=== PATIENT | male | born 1980 | race Caucasian/White ===

== ENCOUNTER 2017-10-01 12:31 | Emergency (ER) | payer OTHER ==
[2017-10-01] MEDS ORDERED: LORazepam 2 MG/ML INJ NASAL ONE (12:47)
--- NOTE | 2017-10-01 12:48 | EDPHY ---
H & P Time Seen by Provider: 10/01/17 12:44 HPI/ROS: CHIEF COMPLAINT: "I'm freaking out" HISTORY OF PRESENT ILLNESS: 37-year-old male arrives via private vehicle with a friend who provides the majority of history is the patient is hyperventilating and anxious and is having difficulty providing history when high initially interview him secondary to the acute hyperventilation symptoms. The patient describes a stressful couples therapy session last evening as patient going through a separation with his partner which triggered acute anxiety. No suicidal or homicidal ideation. PRIMARY CARE PROVIDER: REVIEW OF SYSTEMS: A ten point review of systems was performed and is negative with the exception of the items mentioned in the HPI PAST MEDICAL & SURGICAL HISTORY: No pertinent medical or surgical history SOCIAL HISTORY: Positive for polysubstance abuse PHYSICAL EXAM (Prior to examination, patient consented to physical exam, hands were washed and my usual and customary physical exam procedures followed) 1) GENERAL: Well-developed, well-nourished, anxious, hyperventilating 2) HEAD: Normocephalic, atraumatic 3) HEENT: Pupils equal, round, reactive to light bilaterally. Sclera anicteric. 4) NECK: Full range of motion, no meningeal signs. 5) LUNGS: Clear auscultation bilaterally, no wheezes, no rhonchi, no retractions. 6) HEART: Regular rate and rhythm, no murmur, no heave, no gallop. 7) ABDOMEN: No guarding, no rebound, no focal tenderness, negative McBurney's, negative Diaz's, negative Rovsing's, negative peritoneal sign, 8) MUSCULOSKELETAL: Carpal pedal spasms present. 9) BACK: No CVA tenderness, no midline vertebral tenderness, no fluctuance, no step-off, no obvious trauma, no visual or palpable abnormality. 10) SKIN: No rash, no petechiae. 11) Psychiatric: Patient is oriented X 3, there is no agitation. DIFFERENTIAL DIAGNOSIS: In no particular include but limited to acute anxiety reaction, pulmonary embolus, Constitutional: Initial Vital Signs Temperature (C) 36.9 C 10/01/17 12:44 Heart Rate 95 10/01/17 12:44 Respiratory Rate 24 H 10/01/17 12:44 Blood Pressure 171/103 H 10/01/17 12:44 O2 Sat (%) 99 10/01/17 12:44 O2 Delivery Mode Room Air Allergies/Adverse Reactions: No Known Allergies Allergy (Unverified 11/11/10 17:42) Home Medications: Medication Instructions Recorded Adderall 10 MG (*) 10/01/17 LORazepam [Ativan 1 mg (RX)] 1 mg PO Q6 PRN #4 tab 10/01/17 MDM/Departure - MDM Medications Given: Discontinued Medications Lorazepam (Ativan Injection) 1 mg NASAL EDNOW ONE Stop: 10/01/17 12:48 Last Admin: 10/01/17 12:53 Dose: 1 mg ED Course/Re-evaluation: 12:47 p.m.: Patient is acutely agitated and anxious appearing, experiencing carpal pedal spasms, hyperventilation. Will administer intranasal Ativan and re -evaluated. 1:20 p.m.: Re-evaluation after intranasal Ativan. He is feeling more calm, he appears significantly improved. He is conversive. Carpal pedal spasms resolved. He denies suicidal or homicidal ideation. Denies illicit drug or alcohol use. Plan will be discharge. Given small prescription for Ativan. Care of patient under supervision of primary Supervising physician Dr Rossi. - Depart Disposition: Home, Routine, Self-Care Clinical Impression: Acute anxiety Condition: Good Instructions: Anxiety (ED) Prescriptions: LORazepam [Ativan 1 mg (RX)] 1 mg PO Q6 PRN #4 tab PRN Reason: Anxiety Referrals: Panda Dotson MD [[facility] [place] Primary Care Provider] - As per Instructions
[2017-10-01 13:38] VITALS: BP 120/87
== END 2017-10-01 13:39 | disposition home or self-care (01) ==
DX: F41.9 Anxiety disorder, unspecified (principal)
CPT/HCPCS: J2060